=== PATIENT | male | born 1940 | race Caucasian/White ===

== ENCOUNTER 2022-07-27 16:03 | Outpatient (CLI) | payer MEDICARE, BC ==
[2022-07-27 17:13] LABS: Hemoglobin 12.9 g/dL (13.5-17.5); Mean Corpuscular HGB CONC 32.3 g/dL (32.0-36.0); Mean Corpuscular Hemoglobin 30.5 pg (27.0-33.0); Mean Corpuscular Volume 94.6 fl (81.2-95.1); Mean Platelet Volume 9.9 fl (7.4-10.4); Platelet Count 215 10x3/uL (150-450); Red Blood Cell (RBC) Count 4.23 10x6/uL (4.32-5.72); White Blood Cell (WBC) Count 6.2 10x3/uL (3.5-10.5)
[2022-07-27 17:17] LABS: INR-International Normal Ratio 0.9; PTT 29.8 sec (22.0-33.0); Prothrombin Time 10.2 sec (9.5-12.1)
[2022-07-27 17:20] LABS: Anion Gap 13 mmol/L (10-20); BUN (Urea Nitrogen) 13 mg/dL (8.4-25.7); Calc. Creatinine Clearance 0 mL/min (70-130); Calcium 8.5 mg/dL (7.8-10.44); Carbon Dioxide 23 mmol/L (23-31); Chloride 108 mmol/L (98-107); Estimated GFR 86; Glucose 91 mg/dL (83-110); Potassium 3.8 mmol/L (3.5-5.1); Sodium 140 mmol/L (136-145)
== END 2022-07-27 16:04 | disposition home or self-care (01) ==
LOC: CSHLAB 16:03
PROVIDERS: ATTEND Specialist
DX: Z01.818 Encounter for other preprocedural examination (principal)
CPT/HCPCS: 80048; 85027; 85610; 85730; 93005; 93010

== ENCOUNTER → 2022-07-31 | Day surgery (SDC) | payer MEDICARE, BC ==
[~2022-07-31] MED LIST: Fentanyl 100 MCG/2 ML VIAL ONE; Gentamicin 80 MG/2 ML VIAL ONE; Iopamidol 300 61% 100 ML VIAL FS ONE; Lidocaine 1% (PF) 30 ML VIAL ONE; Midazolam HCl 2 mg/2 ml Vial ONE; Vancomycin HCl 500 MG VIAL ONE
[2022-07-31 14:45] VITALS: BP 155/67; TEMP 98.8
== END ==
LOC: CSHSDC 06:25
PROVIDERS: ATTEND Specialist
DX: I44.1 Atrioventricular block, second degree (principal)
CPT/HCPCS: 33208; 71045; C1785; C1898 ×2; 99152; 99153; J1580; J2001; J2250; J3010; J3370; Q9967